=== PATIENT | male | born 1965 | race Caucasian/White ===

== ENCOUNTER 2018-12-13 14:06 | Day surgery (SDC) | payer OTHER ==
[~2018-12-13] VITALS: Ht 180.3 cm; Wt 93.2 kg
[~2018-12-13 14:06] MED LIST: LOSA50 PO; Toprol Xl50 MG PO
--- NOTE | 2018-12-13 14:56 | NUR ---
12/13/18 1456 Rowan Cooper [facility] BROUGHT PATIENT INTO THE OR.
--- NOTE | 2018-12-13 15:59 | NUR ---
12/13/18 1553 Samantha Conley WHEN SAT UP TO GET UP TO CHAIR, BECAME NAUSEATED, BP 80/41, MED C ZOFRAN 4MG IV. REMAINS IN BED
== END 2018-12-13 16:50 | disposition home or self-care (01) ==
LOC: ORSCSDS 14:06
PROVIDERS: Podiatrist Foot & Ankle Surgery
PROC: 0QSP04Z Reposition Left Metatarsal with Internal Fixation Device, Open Approach (ICD-10-PCS; principal; 2018-12-13 15:15)
DX: S92.355A Nondisplaced fracture of fifth metatarsal bone, left foot, initial encounter for closed fracture (principal); I10 Essential (primary) hypertension; G47.33 Obstructive sleep apnea (adult) (pediatric); F17.210 Nicotine dependence, cigarettes, uncomplicated; Z79.899 Other long term (current) drug therapy
CPT/HCPCS: C1713; J0690; J2250; J2405; J3010; J7120

== ENCOUNTER 2025-01-20 15:56 | Emergency (ER) | payer OTHER ==
[~2025-01-20] VITALS: Ht 180.3 cm; Wt 120.2 kg
[2025-01-20 16:22] LABS: BASOPHILS ABSOLUTE AUTO 0.07 K/mm3 (0.00-0.23); BASOPHILS PERCENT AUTO 1 % (0-2); EOSINOPHILS ABSOLUTE AUTO 0.12 K/mm3 (0.00-0.68); EOSINOPHILS PERCENT AUTO 2 % (0-6); Hematocrit 42.3 % (37.0-53.0); Hemoglobin 14.4 g/dL (13.5-17.5); IMMATURE GRAN ABSOLUTE AUTO 0.02 K/mm3 (0.00-0.10); IMMATURE GRAN PERCENT AUTO 0 % (0-1); LYMPHOCYTES ABSOLUTE AUTO 2.38 K/mm3 (0.84-5.20); LYMPHOCYTES PERCENT AUTO 34 % (21-46); MONOCYTES PERCENT AUTO 9 % (4-13); Mean Corpuscular HGB 30.8 pg (26.0-34.0); Mean Corpuscular Volume 90 fL (80-100); Mean Platelet Volume 10.6 fL (9.1-12.4); NEUTROPHILS ABSOLUTE AUTO 3.79 K/mm3 (1.96-9.15); NEUTROPHILS PERCENT AUTO 54 % (41-73); Platelet Count 217 K/mm3 (150-400); RDW Coefficient Variation 12.4 % (11.7-14.2); RDW Standard Deviation 40.7 fL (35.1-46.3); Red Blood Cell Count 4.68 M/mm3 (4.30-5.90); White Blood Cell Count 6.98 K/mm3 (4.00-11.30)
[2025-01-20 16:37] LABS: Albumin, Blood 3.9 g/dL (3.4-5.0); Albumin/Globulin Ratio 1.3 (0.8-1.8); Bilirubin, Total 0.3 mg/dL (0.1-1.0); Calcium, Blood 8.1 mg/dL (8.5-10.1); Creatinine, Blood 1.43 mg/dL (0.60-1.20); Potassium, Blood 3.6 mmol/L (3.5-5.5); Total Protein, Blood 6.9 g/dL (6.4-8.2)
[2025-01-20] MEDS ORDERED: NS 1,000 ML IV ONE (16:52)
[2025-01-20] MEDS ORDERED: NS 1,000 ML IV SCH (16:55)
[2025-01-20 20:17] VITALS: BP 139/90
== END 2025-01-20 20:38 | disposition home or self-care (01) ==
LOC: ER 15:56
PROVIDERS: Student in an Organized Health Care Education/Training Program
DX: R55 Syncope and collapse (principal); R79.89 Other specified abnormal findings of blood chemistry; F17.200 Nicotine dependence, unspecified, uncomplicated; Z88.8 Allergy status to other drugs, medicaments and biological substances
CPT/HCPCS: 71046; 71275; 80053; 83735; 84484; 85025; 93005; 93010; 99285-25; J7030; Q9967